=== PATIENT | male | born 1955 | race Caucasian/White ===

== ENCOUNTER 2022-03-17 10:06 | Emergency (ER) | payer BC ==
[~2022-03-17] VITALS: Ht 165.1 cm; Wt 68.0 kg
--- NOTE | 2022-03-17 10:21 | NUR ---
BIBS C/O NAUSEA, VOMITING, AND LOWER ABDOMINAL PAIN SINCE YESYERDAY. PT STATED THAT HIS ABOMINAL PAIN WAS 9/10 YESTERDAY AND RESOLVED AND IS TOLERABLE, THE PAIN RADIATED TO THE LEFT SIDE OF HIS BACK AND STATES A 7/10. PT IS A&OX4 AMBULATORY ON HIS OWN. DENIES ANY TRAUMA BUT STATED THAT HE WAS CARRYING MATTS THAT WERE APPROXIMATELY 10LBS. WARM BLANKET PROVIDED FOR COMFORT. AWAITING MD ORDERS.
[2022-03-17] MEDS ORDERED: ONDANSETRON HCL/PF 4 MG/2 ML VIAL IVP ONE (10:30)
[2022-03-17] MEDS ORDERED: IV NS 0.9% 1,000 ML BAG IV ONE (10:30)
[2022-03-17] MEDS ORDERED: ONDANSETRON HCL/PF 4 MG/2 ML VIAL ONE (10:31)
--- NOTE | 2022-03-17 10:34 | NUR ---
PT UNABLE TO PROVIDE URINE AT THIS TIME
[2022-03-17 10:51] LABS: BASOPHILS % (AUTO) 0.3 % (0.0-2.0); HEMATOCRIT 47 % (39-51); HEMOGLOBIN 15.5 g/dL (13.5-17.5); LYMPHOCYTES # (AUTO) 0.7 K/uL (0.8-4.8); LYMPHOCYTES % (AUTO) 5.6 % (20.0-44.0); MEAN CORPUSCULAR HGB CONC 33 g/dl (31.0-36.0); MEAN CORPUSCULAR VOLUME 97 fL (80-96); MONOCYTES # (AUTO) 1.1 K/uL (0.1-1.30); MONOCYTES % (AUTO) 9.2 % (2.0-12.0); NEUTROPHILS # (AUTO) 10.2 K/uL (1.8-8.9); NEUTROPHILS % (AUTO) 84.9 % (43.0-81.0); PLATELET COUNT (AUTO) 168 K/uL (150-450); RED BLOOD CELL COUNT(AUTO) 4.83 MIL/uL (4.5-6.0)
[2022-03-17] MEDS ORDERED: KETOROLAC TROMETHAMINE 15 MG/ML VIAL ONE (10:59)
[2022-03-17] MEDS ORDERED: KETOROLAC TROMETHAMINE INJ 30 MG/ML VIAL IV ONE (11:00)
[2022-03-17 11:10] LABS: ALBUMIN 4.6 g/dL (3.4-5.0); BILIRUBIN,DIRECT 0.2 mg/dL (0.0-0.2); BILIRUBIN,TOTAL 1.4 mg/dL (0.2-1.0); CALCIUM, SERUM 9.4 mg/dL (8.5-10.1); CREATININE 1.9 mg/dL (0.6-1.3); POTASSIUM 4.5 mmol/L (3.5-5.1); TOTAL PROTEIN, SERUM 7.8 g/dL (6.4-8.2)
[2022-03-17] MEDS ORDERED: TAMS-12 PO (11:57)
[2022-03-17] MEDS ORDERED: ONDA4TAB11 PO (11:57)
[2022-03-17] MEDS ORDERED: IBUP-1957 PO (11:59)
[2022-03-17 12:08] VITALS: BP 130/70
--- NOTE | 2022-03-17 12:08 | NUR ---
Patient discharged to home in stable condition. Written and verbal after care instructions given. Patient verbalizes understanding of instruction.IV removed. Catheter intact and site benign. Pressure and 4x4 applied to site. No bleeding noted.
== END 2022-03-17 12:09 | disposition home or self-care (01) ==
LOC: ER 10:15
DX: K29.70 Gastritis, unspecified, without bleeding (principal); N20.0 Calculus of kidney; I10 Essential (primary) hypertension; Z79.899 Other long term (current) drug therapy
CPT/HCPCS: 99284; 74176; 96374; 96361; 96375; 85025; 80048; 83690; 80076; J2405; J7030 ×2; J1885